=== PATIENT | female | born 1950 | race American Indian/Alaskan Native ===

== ENCOUNTER 2017-12-18 16:24 | Emergency (ER) | payer MEDICARE, MEDICAID ==
[2017-12-18 16:24] VITALS: BMI 27.6
[2017-12-18 16:41] VITALS: TEMP 98.3
[2017-12-18] MEDS ORDERED: Albuterol-Ipratrop 3 mg / 0.5 (3 ml) UD IH STA (16:47)
--- NOTE | 2017-12-18 16:50 | ED PDOC ---
Arrival/HPI - General Chief Complaint: Shortness Of Breath Time Seen by Provider: 12/18/17 16:41 Historian: Patient, Family (Son) - History of Present Illness Time/Duration: Other (chronic) Symptom Onset: Gradual Symptom Course: Worsening Severity Level: Moderate Associated Symptoms (Text): 12/18/17 16:47 Patient complains of chronic dyspnea on exertion which is becoming worse. There is no dyspnea at rest. There is a very mild nonproductive chronic cough. No chest or upper back pain, though she does have chronic low back pain. No fever or chills. No sputum production. There is a history of COPD. She has home oxygen. She has a home nebulizer which she does not use, because she says it is broken. She does not appear to be in any distress while sitting on the stretcher. Past Medical History - Infectious Disease Hx of Infectious Diseases: None - Tetanus Immunization Tetanus Immunization: Unknown - Cardiac Hx Cardiac Disorders: Yes Hx Hypertension: Yes - Pulmonary Hx Respiratory Disorders: Yes Hx Asthma: Yes Hx Chronic Obstructive Pulmonary Disease (COPD): Yes - Neurological Hx Neurological Disorder: No - HEENT Hx HEENT Disorder: No - Renal Hx Renal Disorder: No - Endocrine/Metabolic Hx Endocrine Disorders: Yes Hx Diabetes Mellitus Type 2: Yes - Integumentary Hx Dermatological Disorder: No - Musculoskeletal/Rheumatological Hx Falls: No - Gastrointestinal Hx Gastrointestinal Disorders: No - Genitourinary/Gynecological Hx Genitourinary Disorders: No - Psychiatric Hx Psychophysiologic Disorder: No Hx Substance Use: No - Surgical History Hx Cholecystectomy: Yes - Suicidal Assessment Feels Threatened In Home Enviroment: No Family/Social History - Physician Review Nursing Documentation Reviewed: Yes Family/Social History: Unknown Family HX Smoking Status: Never Smoked Hx Alcohol Use: No Hx Substance Use: No Allergies/Home Meds Allergies/Adverse Reactions: Allergies No Known Allergies Allergy (Verified 12/18/17 16:33) Home Medications: Home Meds Medication Instructions Recorded Confirmed Lisinopril/Hydrochlorothiazide 1 tab PO DAILY 10/24/13 12/18/17 [Lisinopril and Hydrochlorothiazide 25 mg-20 M] Review of Systems - Physician Review All systems were reviewed & negative as marked: Yes - Review of Systems Constitutional: absent: Fatigue, Fevers Respiratory: SOB. absent: Cough, Sputum, Wheezing Cardiovascular: REBOLLAR. absent: Chest Pain, Palpitations, Edema, Syncope Gastrointestinal: absent: Abdominal Pain, Nausea, Vomiting Neurological: Headache, Dizziness, Focal Weakness, Gait Changes Physical Exam Vital Signs Temp Pulse Resp BP Pulse Ox 12/18/17 21:20 88 18 156/72 H 99 12/18/17 20:24 88 18 156/72 H 99 12/18/17 16:50 19 96 12/18/17 16:35 98.3 F 82 20 179/68 H 97 Temperature: Afebrile Blood Pressure: Hypertensive Pulse: Regular Respiratory Rate: Normal Appearance: Positive for: Well-Appearing, Non-Toxic, Comfortable Pain Distress: None Mental Status: Positive for: Alert and Oriented X 3 - Systems Exam Head: Present: Atraumatic, Normocephalic Pupils: Present: PERRL Extroacular Muscles: Present: EOMI Conjunctiva: Present: Normal Ears: Present: NORMAL TM, Normal Canal. No: Erythema Mouth: Present: Moist Mucous Membranes Pharnyx: No: ERYTHEMA, EXUDATE, TONSILS ENLARGED Neck: Present: Normal Range of Motion. No: JVD Respiratory/Chest: Present: Clear to Auscultation, Good Air Exchange, Decreased Breath Sounds. No: Respiratory Distress, Accessory Muscle Use Cardiovascular: Present: Regular Rate and Rhythm, Normal S1, S2. No: Murmurs Abdomen: No: Tenderness, Distention, Peritoneal Signs, Rebound, Guarding Upper Extremity: Present: Normal Inspection. No: Cyanosis, Edema Lower Extremity: Present: Normal Inspection. No: Edema Neurological: Present: GCS=15, CN II-XII Intact, Speech Normal, Motor Func Grossly Intact Skin: Present: Warm, Dry, Normal Color. No: Rashes Psychiatric: Present: Alert, Oriented x 3, Normal Insight, Normal Concentration Medical Decision Making ED Course and Treatment: 12/18/17 16:59 EKG shows normal sinus rhythm rate approximately 75 with poor R-wave progression and Q waves inferiorly 12/18/17 17:14 Patient is anemic. Rectal exam shows brown guaiac negative stool. 12/18/17 17:31 Elevated d-dimer, but the patient's creatinine is elevated and we are unable to do CTA. A VQ scan has been ordered and the nuclear security officer called. 12/18/17 20:59 Offered observation, but the patient wants to go home. Given a prescription for Ultram for her chronic low back pain. - Lab Interpretations Lab Results: 12/18/17 17:00 12/18/17 17:00 Lab Results 12/18/17 17:04: POC Glucose (mg/dL) 107 12/18/17 17:00: Sodium 145, Potassium 4.3, Chloride 112 H, Carbon Dioxide 23, Anion Gap 14, BUN 44 H, Creatinine 1.9 H, Est GFR ( Amer) 32, Est GFR ( Non-Af Amer) 26, Random Glucose 118 H, Calcium 8.5, Magnesium 1.9, Total Bilirubin < 0.1 L, AST 29, ALT 25, Alkaline Phosphatase 66, Lactate Dehydrogenase 658, Total Creatine Kinase 409 H, CK-MB (CK-2) 3.9 H, CK-MB (CK-2 ) % Cancelled, Troponin I 0.02 D, NT-Pro-B Natriuret Pep 473 H, Total Protein 7.2, Albumin 3.8, Globulin 3.4, Albumin/Globulin Ratio 1.1 12/18/17 17:00: PT 10.6, INR 0.93, APTT 28.0, D-Dimer, Quantitative 852 H 12/18/17 17:00: WBC 6.6, RBC 3.02 L, Hgb 8.3 L, Hct 25.9 L, MCV 85.8, MCH 27.5, MCHC 32.0, RDW 14.3, Plt Count 206, MPV 11.1 H, Gran % 58.7, Lymph % (Auto) 34.5 , [place] % (Auto) 4.6, Eos % (Auto) 2.0, Baso % (Auto) 0.2, Gran # 3.87, Lymph # ( Auto) 2.3, [place] # (Auto) 0.3, Eos # (Auto) 0.1, Baso # (Auto) 0.01 - RAD Interpretation Radiology Orders: 12/18/17 16:46 CHEST PORTABLE [RAD] Stat 12/18/17 17:21 LUNG PERF & VENT SCAN [NM] Stat VQ scan is read by the radiologist shows low probability for pulmonary embolus. Chest 1 view shows no infiltrate effusion or cardiomegaly. There is elevated right hemidiaphragm. 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 Ulcer: No History Surgical Site Infection Following: None - Disposition Have Diagnosis and Disposition been Completed?: Yes Diagnosis: Dyspnea, Asthma, Chronic low back pain, Renal failure, Hypertension Disposition: HOME/ ROUTINE Disposition Time: 21:00 Patient Plan: Discharge Condition: IMPROVED Discharge Instructions (ExitCare): Low Back Pain in Adults, Asthma in Adults Prescriptions: Tramadol HCl [Ultram] 50 mg PO Q6 PRN #10 tab PRN Reason: Pain Albuterol HFA [Ventolin HFA 90 mcg/actuation (8 g)] 2 puff IH [id number] #1 puff Referrals: Kaity Saavedra, [Primary Care Provider] - Follow up with primary Forms: [employer] ([place])
[2017-12-18 17:08] LABS: BASO # 0.01 K/mm3 (0.0-2.0); BASO % 0.2 % (0.0-3.0); EOS # 0.1 (0.0-0.7); GRAN # 3.87 (1.4-6.5); GRAN % 58.7 % (50.0-68.0); HEMOGLOBIN 8.3 g/dL (12.0-16.0); LYMPH # 2.3 (1.2-3.4); LYMPH % 34.5 % (22.0-35.0); MEAN CELL VOLUME 85.8 fl (80.0-105.0); MEAN CORPUSCULAR HEMOGLOBIN 27.5 pg (25.0-35.0); MEAN PLATELET VOLUME 11.1 fl (7.0-11.0); MONO # 0.3 (0.1-0.6); MONO % 4.6 % (1.0-6.0); RBC 3.02 10^6/uL (3.5-6.1); RED CELL DISTRIBUTION WIDTH 14.3 % (11.5-14.5); WHITE BLOOD COUNT 6.6 10^3/ul (4.5-11.0)
[2017-12-18 17:19] LABS: ALB/GLOB RATIO 1.1 (1.1-1.8); ALBUMIN 3.8 g/dL (3.0-4.8); ALT/SGPT 25 U/L (7-56); AST/SGOT 29 U/L (14-36); BLOOD UREA NITROGEN 44 mg/dL (7-21); CALCIUM 8.5 mg/dL (8.4-10.5); GFR AFRICAN-AMERICAN 32; GFR NON-AFRICAN AMERICAN 26; INR 0.93 (0.93-1.08); PROTHROMBIN TIME 10.6 SECONDS (9.4-12.5)
[2017-12-18 17:30] LABS: B-TYPE NATRIURETIC PEPTIDE 473 pg/mL (0-450); TROPONIN I 0.02 ng/mL
[2017-12-18 17:40] LABS: CK-MB 3.9 ng/mL (0.0-3.6)
--- NOTE | 2017-12-18 18:51 | CARD ---
APPROVED REPORT EKG Measurement Heart [id number] <Conclusion> Normal sinus rhythm Moderate voltage criteria for LVH, may be normal variant Inferior infarct, age undetermined Abnormal ECG
--- NOTE | 2017-12-18 19:24 | RAD ---
HISTORY: sob COMPARISON: Chest radiographs 10/03/2013. FINDINGS: LUNGS: No acute infiltrate bilaterally. Right hemidiaphragm is further elevated cephalad, etiology remains indeterminate. PLEURA: No significant pleural effusion identified, no pneumothorax apparent. CARDIOVASCULAR: Normal. OSSEOUS STRUCTURES: No significant abnormalities. VISUALIZED UPPER ABDOMEN: Normal. OTHER FINDINGS: None. IMPRESSION: Further elevation right hemidiaphragm. No acute infiltrate bilaterally or acute cardiovascular disease appreciable.
--- NOTE | 2017-12-18 20:45 | NM ---
EXAM: NM Lung Perfusion and Ventilation Scan EXAM DATE/TIME: 12/18/2017 5:21 PM CLINICAL HISTORY: 67 years old, female; Signs and symptoms; Shortness of breath; Additional info: Elevated dimer TECHNIQUE: Nuclear Medicine ventilation and perfusion images of the lungs were obtained in multiple projections following inhalation of 40.00 mCi of Tc99m DTPA aerosol and injection of 4.0 mCi of Tc99m MAA. COMPARISON: DX - CHEST PORTABLE 2017-12-18 16:50 FINDINGS: Ventilation: There is decreased ventilation at the right base consistent with elevated diaphragm seen on chest x-ray. There is decreased ventilation at the left base correlating with prominent heart seen on chest x-ray. There is swallowed isotope in the stomach left upper quadrant. There are no segmental or subsegmental ventilation defects Perfusion: There is matched decreased perfusion at the right base and at the left base. There are no segmental or subsegmental perfusion defects IMPRESSION: Low probability for pulmonary embolus
[2017-12-18 21:13] VITALS: BP 156/72; PULSE 88; RESP 18; O2SAT 99
== END 2017-12-18 21:20 | disposition home or self-care (01) ==
LOC: ED 16:24
DX: J45.909 Unspecified asthma, uncomplicated (principal); I12.9 Hypertensive chronic kidney disease with stage 1 through stage 4 chronic kidney disease, or unspecified chronic kidney disease; R06.00 Dyspnea, unspecified; M54.5 Low back pain; G89.29 Other chronic pain; E11.22 Type 2 diabetes mellitus with diabetic chronic kidney disease; N18.9 Chronic kidney disease, unspecified
CPT/HCPCS: 71045; 78582; 80053; 82550; 82553; 82948; 83615; 83735; 83880; 84484; 85025; 85378; 85610; 85730; 93005; 94640; 99284; A9540; A9567